=== PATIENT | male | born 1985 | race Caucasian/White ===

== ENCOUNTER 2023-09-11 17:01 | Emergency (ER) | payer SELFPAY ==
[2023-09-11 17:13] VITALS: BP 135/98; PULSE 77; RESP 16; TEMP 36.6; O2SAT 96; BMI 31.6
--- NOTE | 2023-09-11 17:53 | ED_ITS ---
HPI - Back Pain/Injury 2 General: Chief Complaint: Back Pain/Injury Stated Complaint: back pain Time Seen by Provider: 09/11/23 17:22 Source: patient Mode of arrival: ambulatory Limitations: no limitations History of Present Illness: This patient made his way to the emergency department today because he is having right lower back pain. He states the pain began yesterday. He states he had walked the [place] and done other usual activities for him and does not recall mis-stepping stepping in a hole bending twisting or other activities that may have caused his current symptoms. He states he was weeding the 2 prior days but again does not recall any acute inciting event. The pain is in his right lower back and has not changed in his location. There is no radiation of the pain. His pain is exacerbated by certain movements. He states he was it was difficult for him to get in and out of the car as he had to sit down and then turned into the seat because of usual a try to get in his usual way it would cause him discomfort. He denies any fevers or chills. He denies any loss of bowel or bladder control. Is otherwise in great health takes no daily medications. No IV drug use no immune compromise etc. MD elicited complaint: back pain Location: sacrum and right lower back Radiation: none Exacerbating factors: movement Context: unknown Associated symptoms: Reports no associated symptoms Review of Systems 2 General: Reports: 10 or more systems reviewed and unremarkable except in HPI and below Physical Exam 2 Narrative: EXAM NARRATIVE: Appears to be comfortable. No acute distress. Const: COMMON NORMALS: no acute distress, patient oriented x3 and alert G ENERAL APPEARANCE: cooperative and comfortable NUTRITIONAL APPEARANCE: o verweight HENMT: COMMON NORMALS: normocephalic HEAD & SCALP: normocephalic Eye: COMMON NORMALS: Equal, round and reactive pupils present PUPIL: Yes Equal, round and reactive pupils present Neck/C-Spine: COMMON NORMALS: full ROM GI: COMMON NORMALS: Normal to inspection, nondistended, normoactive bowel sounds present, Soft to palpation and non-tender PALPATION: Yes Soft to palpation : COMMON NORMALS: Yes no CVA tenderness BLADDER/KIDNEY EXAM: Yes no CVA tenderness Back/Pelvis: COMMON NORMALS: no CVA tenderness, thoracic and lumbar spine normal to inspection, no thoracic nor lumbar tenderness and straight leg raise negative bilaterally PELVIS: Yes no pain with anterior-posterior compression and Yes no pain with lateral compression SACROILIAC JOINTS: Yes SI joints normal OTHER: Back examination reveals no midline tenderness or step-off. He has normal curves. There is no skin rash etc. He has no discernible palpable tenderness over the posterior superior iliac spine regions either left or right. Neuro: COMMON NORMALS: patient oriented x3, moves all extremities, no focal motor deficits and no sensory deficits noted SENSORIUM/ORIENTATION: Yes alert GAIT: Yes Normal gait present Skin: COMMON NORMALS: no rashes or lesions noted and no wounds GENERAL SKIN EXAM: no rashes or lesions noted Course 2 Reevaluation(s): Reevaluation #1: The paucity of clinical examination findings to support sacroiliac syndrome prompted a urinalysis which does show nonhemolyzed and hemolyzed red blood cells. Will go ahead and get a noncontrast CT to evaluate for any renal lithiasis. Time: 18:52 Reevaluation #2: Patient is subjectively more comfortable. No new or focal findings on repeat evaluation. We discussed current findings and their limitations and implications. CT scan is revealing for any obvious renal stone or any other intra-abdominal pathology. Presentation is unclear. He does have some occult hematuria without any signs of infection and symptoms of possible back strain without any significant physical findings to support that presumption. This was all discussed and explained to the patient. Will give him empiric Toradol to use as needed for the next 4 to 5 days and also return precautions. At this time does not represent an ongoing emergency medical condition and certainly not a worrisome back pain issue. Time: 20:28 Vital Signs: Vital signs: Vital Signs Temperature 98 F 09/11/23 17:13 Pulse Rate 77 09/11/23 17:13 Respiratory Rate 16 09/11/23 17:13 Blood Pressure 135/98 09/11/23 17:13 Pulse Oximetry 96 09/11/23 17:13 Oxygen Delivery Me thod Room Air 09/11/23 17:13 MDM - Back Pain/Injury Medical Decision Making Patient presented to the emergency department and with symptoms of back pain as outlined in the history of present illness. Initial history strongly suggestive of mechanical low back pain likely a sacroiliac dysfunction. However clinical examination was not typical for this kind of presentation and therefore the differential was broadened to ensure no evidence of urinary tract infection, renal stone etc. Absolutely no features either historical or clinical that would suggest a radiculopathy and/or other serious red flag type low back issue. There was no history of bowel or bladder dysfunction he had no risk factors for discitis, cauda equina etc. Patient is clinically improved and stable and is being empirically treated with nonsteroidals and increase fluids with return precautions. Patient voiced understanding was appreciative of care. Labs I reviewed the patient's lab results. 09/11/23 19:45 Radiology Impressions Abdomen/Pelvis CT 09/11/23 18:50 IMPRESSION: 1. No evidence of acute abnormality in the abdomen or pelvis within limitations of a noncontrast exam. Laboratory Results Sodium 139 mmol/L (136-145) 09/11/23 19:45 Potassium 4.1 mmol/L (3.5-5.1) 09/11/23 19:45 Chloride 101 mmol/L (98-107) 09/11/23 19:45 Carbon Dioxide 27 mmol/L (22-29) 09/11/23 19:45 Anion Gap 15.1 (5-19) 09/11/23 19:45 BUN 12 mg/dL (6-20) 09/11/23 19:45 Creatinine 0.8 mg/dL (0.7-1.2) 09/11/23 19:45 GFR Calculation 108.2 mL/min (90-130) 09/11/23 19:45 Glucose 89 mg/dL (65-115) 09/11/23 19:45 Calculated Osmolality 287 mOsm/kg (285-295) 09/11/23 19:45 Calcium 9.2 mg/dL (8.5-10.5) 09/11/23 19:45 Urine Color Yellow (Yellow) 09/11/23 18:05 Urine Appearance Slightly cloudy (CLEAR) 09/11/23 18:05 Urine pH 6.5 (5-7) 09/11/23 18:05 Ur Specific [place] 1.010 (1.005-1.030) 09/11/23 18:05 Urine Protein Neg (Negative) 09/11/23 18:05 Urine Glucose (UA) Norm (Normal) 09/11/23 18:05 Urine Ketones Negative (Negative) 09/11/23 18:05 Urine Blood 2+ (Negative) H 09/11/23 18:05 Urine Nitrate Negative (Negative) 09/11/23 18:05 Urine Bilirubin Neg (Negative) 09/11/23 18:05 Urine Urobilinogen Norm mg/dL (Negative) 09/11/23 18:05 Ur Leukocyte Esterase Negative (Negative) 09/11/23 18:05 Urine RBC 0-4 /hpf (0-2) H 09/11/23 18:05 Urine WBC 0-4 /hpf (0-5) H 09/11/23 18:05 Ur Squamous Epith Cells None /hpf (0-5) 09/11/23 18:05 Amorphous Sediment Not Reportable 09/11/23 18:05 Urine Bacteria None /hpf (NONE) 09/11/23 18:05 Urine Mucus 3+ /hpf 09/11/23 18:05 All radiology interpretation(s) finalized by discharge Discharge Plan Discharge Patient Disposition: Home Clinical Impression: Right flank pain Low back pain Qualifiers: Chronicity: acute Back pain laterality: right Sciatica presence: without sciatica Qualified Code(s): M54.50 - Low back pain, unspecified Condition: Stable Prescriptions: New ketorolac 10 mg tablet 10 mg PO Q8H PRN (Reason: pain) 5 Days Qty: 14 0RF Discharge Orders: Discharge ED (Routine); Ordered 09/11/23 Ordered By: Ty Hartmann Discharge Diet: Usual diet Discharge Activity: Increase activity as tolerated Patient Instructions: Opioid Safety, Pain Management Activity Restrictions/Additional Instructions: As we discussed while you are in the emergency department your evaluation did not reveal any findings that suggest a obstructive kidney stone urinary tract infection etc. However there is still consideration he may have had a small stone that passed causing your discomfort. More likely it represents a low back strain. We have provided some pain medications which do not make you sleepy or drowsy that you may use if needed but no longer than 5 days. We encourage you to drink at least 2 quarts of water and/or sports drinks daily in addition to her usual drinks. If you develop fevers chills increasing pain weakness numbness or any other concerning symptoms whatsoever return to the emergency department for reevaluation. Coding Level of Care Code ED [employer] for [employer]oses[employer] Galan
[2023-09-11 18:24] LABS: Add Urine Microscopic? YES; Bilirubin Urine Neg (Negative); Blood Urine 2+ (Negative); Glucose Urine UA Norm (Normal); Ketones Urine Negative (Negative); Leukocyte Esterase Urine Negative (Negative); Nitrate Urine Negative (Negative); Protein Urine Neg (Negative); Urine Appearance Slightly Cloudy (CLEAR); Urine Color Yellow (Yellow); Urobilinogen Urine Norm (Negative); pH Urine 6.5 (5-7)
[2023-09-11] MEDS: ketorolac 30 mg/mL INJ 15 MG IM (18:29)
[2023-09-11 18:31] LABS: Add Urine Culture? No; Mucus Urine 3+ /hpf; RBC Urine 0-4 /hpf (0-2); WBC Urine 0-4 /hpf (0-5)
--- NOTE | 2023-09-11 18:50 | CTR_ITS ---
PROCEDURE INFORMATION: Exam: CT Abdomen And Pelvis Without Contrast Exam date and time: 09/11/2023 7:24 PM Age: 37 years old Clinical indication: Abdominal pain; Flank; Right; Additional info: Right flank pain TECHNIQUE: Imaging protocol: Computed tomography of the abdomen and pelvis without contrast. Radiation optimization: All CT scans at this facility use at least one of these dose optimization techniques: automated exposure control; mA and/or kV adjustment per patient size (includes targeted exams where dose is matched to clinical indication); or iterative reconstruction. COMPARISON: No relevant prior studies available. RADIATION DOSE METRICS: Total DLP (mGy-cm): 1092 FINDINGS: Lungs: Subsegmental bibasilar atelectasis. The visualized lung bases are otherwise clear. Diaphragm: No evidence of diaphragmatic defect. Liver: No evidence of focal hepatic lesion within limitation of a noncontrast exam. Gallbladder and biliary ducts: Gallbladder is unremarkable. No evidence of intra-hepatic or extra-hepatic biliary dilatation. Pancreas: Grossly unremarkable. Spleen: Grossly unremarkable. Adrenal glands: Grossly unremarkable. Kidneys and ureters: No gross renal parenchymal abnormality. No evidence of hydronephrosis or ureteral stone. Stomach and bowel: No evidence of bowel obstruction or perienteric inflammatory changes. Appendix: Normal appendix. Intraperitoneal space: No evidence of free air or fluid collection. Vasculature: No evidence of aneurysmal dilitation of abdominal aorta. Lymph nodes: No evidence of adenopathy. Urinary bladder: Grossly unremarkable. Reproductive: Grossly unremarkable. Bones/joints: No evidence of acute fracture or aggresive osseous lesion. Soft tissues: No evidence of fluid collection or hematoma in the superficial soft tissues. Small fat containing left-sided inguinal hernia. CT/CT abdomen pelvis [facility] [id number] IMPRESSION: 1. No evidence of acute abnormality in the abdomen or pelvis within limitations of a noncontrast exam.
[2023-09-11 20:06] LABS: Anion Gap 15.1 (5-19); Blood Urea Nitrogen 12 mg/dL (6-20); Calcium 9.2 mg/dL (8.5-10.5); Carbon Dioxide 27 mmol/L (22-29); Chloride 101 mmol/L (98-107); Creatinine Clr Calc Pharmacy 162.0043; Glomerular Filtration Rate 108.2 mL/min (90-130); Glucose 89 mg/dL (65-115); Osmolality Calculated 287 mOsm/kg (285-295); Potassium 4.1 mmol/L (3.5-5.1); Sodium 139 mmol/L (136-145)
[2023-09-11 21:19] VITALS: BP 128/96; PULSE 71; RESP 16; TEMP 36.6; O2SAT 98
== END 2023-09-11 20:38 | disposition home or self-care (01) ==
PROVIDERS: Emergency Provider Emergency Medicine
DX: M54.50 Low back pain, unspecified (principal)
CPT/HCPCS: 36415; 74176; 80048; 81001; 96372; 99284; J1885